=== PATIENT | female | born 1955 | race Caucasian/White ===

== ENCOUNTER → 2020-05-16 | Outpatient (CLI) | payer MEDICARE, OTHER | LOC: MC.RAD 08:57 | DX: R92.8 Other abnormal and inconclusive findings on diagnostic imaging of breast (principal) ==

== ENCOUNTER 2020-05-22 07:08 | Day surgery (SDC) | payer OTHER ==
[~2020-05-22] VITALS: Ht 160 cm; Wt 42.6 kg
[2020-05-22 07:46] VITALS: BP 165/63; PULSE 97; TEMP 98.7
[2020-05-22] MEDS ORDERED: MULTIVITAMIN SEN PO (07:53)
[2020-05-22] MEDS ORDERED: ULTRAM 50MG TAB50 MG PO (09:42)
[2020-05-22 10:55] VITALS: BP 167/85; PULSE 85; TEMP 97.2
--- NOTE | 2020-05-22 10:55 | NUR ---
TO RM 6 PER CART FROM PACU. ALERT ORIENTED X3, TALKING WITH STAFF. C/O PAIN 08/20. C/O NAUSEA "TINY BIT" NAUSEA. INCISION SITES CLEAN DRY INTACT.
[2020-05-22 11:00] VITALS: BP 169/60; PULSE 88
--- NOTE | 2020-05-22 11:00 | NUR ---
RECEIVED WATER AND CRACKERS.
[2020-05-22 11:15] VITALS: BP 173/77; PULSE 82
--- NOTE | 2020-05-22 11:15 | NUR ---
ATE 100% AND TOLERATED WELL. SATS 97% ON ROOM AIR.
[2020-05-22 11:30] VITALS: BP 167/69; PULSE 80
[2020-05-22 12:00] VITALS: BP 163/68; PULSE 96
--- NOTE | 2020-05-22 12:00 | NUR ---
DR CHIANG CALLED FOR A FOLLOW UP. 04/03 AT [id number]
--- NOTE | 2020-05-22 12:15 | NUR ---
AMBULATED TO BATHROOM SLOW STEADY GAIT. VOIDED AND AMBULATED BACK TO . PATIENT CALLED FOR RIDE HOME.
--- NOTE | 2020-05-22 12:30 | NUR ---
RECEIVED DISCHARGE INSTRUCTIONS AND VERBALIZED UNDERSTANDING. DISCONTINUED IV AND INT- CATHETER INTACT. PATIENT GETTING DRESSED.
--- NOTE | 2020-05-22 12:50 | NUR ---
DISCHARGED PER WC BY NURSING STAFF TO PRIVATE CAR IN CARE OF [place].
== END 2020-05-22 13:15 | disposition home or self-care (01) ==
LOC: SDCO 07:08
DX: K80.10 Calculus of gallbladder with chronic cholecystitis without obstruction (principal); I10 Essential (primary) hypertension; E78.00 Pure hypercholesterolemia, unspecified; Z90.710 Acquired absence of both cervix and uterus; Z20.828 Contact with and (suspected) exposure to other viral communicable diseases
CPT/HCPCS: J0690; J1100; J1885; J2405; J2704; J3010; J3475; J7120